=== PATIENT | female | born 1970 | race Caucasian/White ===

== ENCOUNTER 2017-06-19 08:41 | Emergency (ER) | payer MEDICAID ==
[2017-06-19] MEDS: KETOROLAC 60 MG INJ IM (10:51)
[2017-06-19 11:25] LABS: ADD UMIC YES; UR ASCORBIC ACID NEGATIVE (NEGATIVE); UR BILIRUBIN (Dip) NEGATIVE (NEGATIVE); UR BLOOD (Dip) 3+ mg/dL (NEGATIVE); UR CLARITY CLEAR (CLEAR); UR COLOR YELLOW (YELLOW); UR GLUCOSE (Dip) NEGATIVE (NEGATIVE); UR KETONES (Dip) NEGATIVE (NEGATIVE); UR LEUKOCYTE ESTERASE (Dip) TRACE Leu/ul (NEGATIVE); UR NITRITE (Dip) NEGATIVE (NEGATIVE); UR RBC 0 /HPF (0-5); UR TOTAL PROTEIN (Dip) NEGATIVE (NEGATIVE); UR UROBILINOGEN (Dip) NEGATIVE (NEGATIVE); UR WBC 0 /HPF (0-5)
== END 2017-06-20 08:45 | disposition home or self-care (01) ==
LOC: FTE 06-20 08:45
DX: S39.92XA Unspecified injury of lower back, initial encounter (principal); W18.39XA Other fall on same level, initial encounter; Y92.89 Other specified places as the place of occurrence of the external cause
CPT/HCPCS: 72131; 73030-RT; 81001; 96372; 99285-25

== ENCOUNTER 2017-06-20 19:14 | Emergency (ER) | payer MEDICAID ==
[2017-06-20] MEDS: METHYLPREDNISOLONE 125 MG INJ IM (21:38)
[2017-06-20] MEDS: HYDROCODONE/APAP (5/325) TAB PO (21:38)
== END 2017-06-20 22:53 | disposition home or self-care (01) ==
LOC: FTE 19:14
DX: M54.42 Lumbago with sciatica, left side (principal)
CPT/HCPCS: 96372; 99284-25

== ENCOUNTER 2018-02-13 10:40 | Emergency (ER) | payer MEDICAID ==
[2018-02-13] MEDS ORDERED: LIDOCAINE 1% (MDV) 10 ML INJ INFIL (11:07)
[2018-02-13] MEDS: LIDOCAINE 1% (MDV) 20 ML INJ SC (11:29)
[2018-02-13] MEDS: HYDROCODONE/APAP (10/325) TAB PO (11:29)
== END 2018-02-13 12:08 | disposition home or self-care (01) ==
LOC: FTE 10:40
DX: L02.413 Cutaneous abscess of right upper limb (principal)
CPT/HCPCS: 10060; 99283-25

== ENCOUNTER 2018-02-15 09:05 | Emergency (ER) | payer MEDICAID | END 2018-02-15 09:53 | disposition home or self-care (01) | LOC: FTE 09:05 | DX: Z48.01 Encounter for change or removal of surgical wound dressing (principal) | CPT/HCPCS: 99281 ==

== ENCOUNTER 2019-01-07 18:34 | Emergency (ER) | payer SELFPAY, MEDICAID ==
[2019-01-07] MEDS: DIPHENHYDRAMINE 50 MG INJ IV (19:50)
[2019-01-07] MEDS: SOD CHLORIDE 0.9% 1,000 ML IV (19:50)
[2019-01-07] MEDS: MECLIZINE 12.5 MG TAB PO (19:50)
[2019-01-07] MEDS: KETOROLAC 30 MG INJ IV (19:53)
[2019-01-07] MEDS: PROCHLORPERAZINE 10 MG INJ IV (20:39)
== END 2019-01-07 21:57 | disposition home or self-care (01) ==
LOC: FTE 18:34
DX: R51 Headache (principal)
CPT/HCPCS: 70450; 96374; 96375; 99285-25